=== PATIENT | female | born 1965 | race Two or more races ===

== ENCOUNTER 2019-10-14 19:14 | Emergency (ER) | payer MEDICARE, MEDICAID ==
[~2019-10-14] VITALS: Ht 160 cm; Wt 78.0 kg
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
--- NOTE | 2019-10-14 20:15 | NUR ---
PT TAKEN TO CT
[2019-10-14 22:44] VITALS: BP 146/89
== END 2019-10-14 22:45 | disposition home or self-care (01) ==
LOC: ER 19:15
DX: S06.0X0A Concussion without loss of consciousness, initial encounter (principal); S46.811A Strain of other muscles, fascia and tendons at shoulder and upper arm level, right arm, initial encounter; S76.011A Strain of muscle, fascia and tendon of right hip, initial encounter; S19.80XA Other specified injuries of unspecified part of neck, initial encounter; I10 Essential (primary) hypertension; Z88.8 Allergy status to other drugs, medicaments and biological substances; V49.59XA Passenger injured in collision with other motor vehicles in traffic accident, initial encounter; Y93.89 Activity, other specified; Y92.413 State road as the place of occurrence of the external cause; Y99.8 Other external cause status
CPT/HCPCS: 70450-TC; 72125-TC; 73030-TC; 73502